=== PATIENT | female | born 1985 | race Two or more races ===

== ENCOUNTER 2016-09-20 17:52 | Emergency (ER) | payer MEDICAID ==
[~2016-09-20] VITALS: Ht 157.5 cm; Wt 76.7 kg
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
--- NOTE | 2016-09-20 18:00 | NUR ---
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
[2016-09-20] MEDS ORDERED: HYDROCODONE/APAP 10/325MG 1 EA TABLET ONE ×2 (18:19→18:23)
[2016-09-20] MEDS ORDERED: ONDANSETRON 4 MG TAB.RAPDIS ONE ×2 (18:19→18:23)
[2016-09-20] MEDS ORDERED: ONDANSETRON 4 MG TAB.RAPDIS SL ONE (18:30)
[2016-09-20] MEDS ORDERED: HYDROCODONE/APAP 10/325MG 1 EA TABLET PO ONE (18:30)
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
[2016-09-20 19:02] VITALS: BP 130/70
--- NOTE | 2016-09-20 19:47 | NUR ---
DPatient discharged to home in stable condition. Written and verbal after care instructions given. Patient verbalizes understanding of instruction. AMBULATORY WITH STEADY GAIT.
== END 2016-09-20 19:03 | disposition home or self-care (01) ==
LOC: ER 17:54
DX: S13.8XXA Sprain of joints and ligaments of other parts of neck, initial encounter (principal); S50.12XA Contusion of left forearm, initial encounter; S00.83XA Contusion of other part of head, initial encounter; Z88.0 Allergy status to penicillin; F17.210 Nicotine dependence, cigarettes, uncomplicated; F10.20 Alcohol dependence, uncomplicated; Z88.9 Allergy status to unspecified drugs, medicaments and biological substances; V43.52XA Car driver injured in collision with other type car in traffic accident, initial encounter; Y93.89 Activity, other specified; Y92.488 Other paved roadways as the place of occurrence of the external cause; Y99.8 Other external cause status
CPT/HCPCS: 71010-TC; 73090-TC; A4606; Q0162; Z7610